=== PATIENT | female | born 1940 | race Asian ===

== ENCOUNTER 2022-10-04 09:40 | Outpatient (CLI) | payer MEDICARE, MEDICAID, SELFPAY ==
[2022-10-04 14:21] LABS: Vitamin D 25 Hydroxy* 33 ng/mL (30-80)
--- NOTE | 2022-10-05 13:06 | ONC.NURNOTE ---
Received referral from clinic for patient for pancytopenia 10/04/2022. Nursing asked to please have CBC rechecked prior to seeing patient, and clinic declined. Talked with pulpit operator, Dr. Quezada and she notes that she doesn't want the CBC rechecked for one month and if continues to be low will look at the information and see patient as able. This message was left for Dr. Gee at the [facility].
== END 2022-10-04 09:41 | disposition home or self-care (01) ==
PROVIDERS: PCP Family Medicine; Visit Provider Family Medicine
DX: E87.6 Hypokalemia (principal); I10 Essential (primary) hypertension; M85.80 Other specified disorders of bone density and structure, unspecified site; D61.818 Other pancytopenia; M81.0 Age-related osteoporosis without current pathological fracture; R10.9 Unspecified abdominal pain
CPT/HCPCS: 82306; 84443; 87086

== ENCOUNTER 2023-12-29 10:33 | Outpatient (CLI) | payer MEDICARE, MEDICAID, SELFPAY | END 2023-12-29 10:34 | disposition home or self-care (01) | LOC: NFLDREF 01-11 11:46 | PROVIDERS: PCP Family Medicine; Referring Provider Family Medicine; Visit Provider Family Medicine | DX: Z13.220 Encounter for screening for lipoid disorders (principal); I10 Essential (primary) hypertension; Z78.0 Asymptomatic menopausal state; E87.6 Hypokalemia; I51.7 Cardiomegaly; K21.9 Gastro-esophageal reflux disease without esophagitis; L30.9 Dermatitis, unspecified; D64.9 Anemia, unspecified | CPT/HCPCS: 80061 ==

== ENCOUNTER 2024-01-31 14:57 | Outpatient (CLI) | payer MEDICARE, SELFPAY ==
--- NOTE | 2024-01-31 15:30 | XR_ITS ---
Patient: MOY ORTIZ Facility:?[facility] Patient ID:?[id number] Site Patient ID:?[id number]. Site :?[id number] Study:?DEXA-Bone Density SPINE/BOTH HIPS-01/31/2024 3:28:11 PM Ordering Physician:OTF Final Report: DXA BONE MINERAL DENSITY STUDY Reason for exam: Asymptomatic menopausal state. Current height (in): 63. Weight (lb): 134. Menopause age: 55. Ethnicity: . 1. Have you had a previous hip or vertebral fracture? No. 2. Have you had any fractures during your adult life which did not result from significant trauma (e.g., auto accident)? No. 3. Did either of your parents have a hip fracture? No. 4. Do you smoke? No. 5. Have you ever taken Glucocorticoids? No. 6. Do you have rheumatoid arthritis? No. 7. Do you have secondary osteoporosis? No. 8. Do you drink 3 or more alcoholic drinks per day? No. 9. Are you being treated for osteoporosis? No. 10. Have you ever taken any of the following medications: Actonel, Evista, Fosamax, Miacalcin, Reclast, Boniva, Forteo, HRT (i.e., estrogen/hormone therapy), Protelos, Prolia, Vitamin D, Calcium, other ? please specify. ANSWER: Yes, fish oil. 11. Do you have any of the following medical conditions: Anorexia or bulimia, asthma or emphysema, end stage renal disease, hyperparathyroidism, any seizure disorders, cancer, inflammatory bowel diseases, hysterectomy, other ? please specify. ANSWER: No. 12. What was your maximum height (inches)? 63 13. Do you perform weight bearing exercise regularly? No. 14. Do you regularly consume dairy products? Yes. 15. Do you drink caffeinated beverages? Yes. If female: 16. At what age did your period start? 13. 17. Are you premenopausal? No. 18. How many full-term pregnancies have you had? 5. 19. Have you ever missed your period for more than 6 months in a row (not including or menopause)? No. TECHNIQUE: Bone mineral density study was performed using the [employer]. FINDINGS: The results of the study expressed as bone mineral density (BMD) are as follows: Lumbar spine L1 to L4: BMD: 0.805 g/cm2. T-score: -2.2. Z-score: 0.6 Neck Left: BMD: 0.547 g/cm2. T-score: -2.7. Z-score: -0.4 Right: BMD: 0.554 g/cm2. T-score: -2.7. Z-score: -0.3 Total Left: BMD: 0.836 g/cm2. T-score: -0.9. Z-score: 1.3 Right: BMD: 0.873 g/cm2. T-score: -0.6. Z-score: 1.5 IMPRESSION: Osteoporosis. *Comparison exams done prior to 03/2020 were performed on different unit, [facility]. COMPARISON: Compared with scan of 05/21/2020, the bone mineral density has increased by 8.0 percent at the spine and increased by 14.7 percent at the hip. Agustin Richards M.D. Diagnostic Radiologist [email or web address] DANIEL/joey D& Transcribed: 12:26 p.mGarry cook/Dictated by: Agustni Richards MD @ 02/01/2024 8:21:00 AM Signed by:?Agustin Richards MD @02/01/2024 12:33:23 PM (Electronic Signature)
== END 2024-01-31 14:58 | disposition home or self-care (01) ==
PROVIDERS: PCP Family Medicine; Visit Provider Family Medicine
DX: Z78.0 Asymptomatic menopausal state (principal); M81.0 Age-related osteoporosis without current pathological fracture
CPT/HCPCS: 77080

== ENCOUNTER 2024-03-29 11:06 | Outpatient (CLI) | payer MEDICARE, MEDICAID, SELFPAY | END 2024-03-29 11:07 | disposition home or self-care (01) | PROVIDERS: PCP Family Medicine; Visit Provider Family Medicine | DX: D64.9 Anemia, unspecified (principal); E87.6 Hypokalemia; I10 Essential (primary) hypertension; M81.0 Age-related osteoporosis without current pathological fracture | CPT/HCPCS: 82310; 83735; 83970; 84100 ==

== ENCOUNTER 2024-06-11 09:36 | Outpatient (RCR) | payer MEDICARE, MEDICAID, SELFPAY ==
--- NOTE | 2024-06-04 14:40 | ONC.NURNOTE ---
Called daughter on 06/03 and scheduled patient for Reclast on Monday 06/11. Also called language interpreter services and requested a Mosotho language interpreter for the appt.
--- NOTE | 2024-06-07 10:53 | URNOTE ---
Prior auth is not required for Reclast ([id number]) per [facility] Injectable prior auth List
[2024-06-11 10:20] LABS: Estimated Glomerular Filt Rate 56 ml/min
[2024-06-11 10:55] VITALS: BP 174/102; PULSE 78; RESP 16; TEMP 36.1; O2SAT 97
[2024-06-11 11:00] VITALS: BP 180/94
[2024-06-11 11:10] VITALS: BP 167/97
[2024-06-11 11:25] VITALS: BP 168/103
[2024-06-11] MEDS: ACETAMINOPHEN 325 MG TABLET 650 MG PO (11:58)
[2024-06-11 12:07] VITALS: BP 182/98; PULSE 78
--- NOTE | 2024-06-11 13:24 | ONC.NURNOTE ---
Pt here for Reclast. Here with clinical business manager and daughter. BP elevated 174/102, recheck 180/94. See EMR VS. Pt c/o headache 03/08-states she gets headaches frequently. Pt did take her BP med this morning. Discussed BP with Hoda Desir APRN, per Hoda rodriguez to treat with reclast, suggested giving pt tylenol 650mg PO for headache. Pt then stated headache was gone. Reclast given, pt tolerated well. Headache returned, BP 182/98. Order then received for tylenol 650mg PO, pt discharged alert and ambulatory with daughter. Mash Processing Operator did leave a message for Dr. Gee to follow up with patient regarding her elevated blood pressures. Pt and her daughter verbalized understanding of plan of care.
== END 2024-12-08 23:59 | disposition home or self-care (01) ==
LOC: CCIC 09:36
PROVIDERS: PCP Family Medicine; Referring Provider Family Medicine; Visit Provider Internal Medicine Hematology & Oncology
DX: M81.0 Age-related osteoporosis without current pathological fracture (principal)
CPT/HCPCS: 36415; 82310; 82565; 96374; 99211; A9270; J3489

== ENCOUNTER 2024-07-25 10:39 | Outpatient (CLI) | payer MEDICARE, MEDICAID, SELFPAY ==
[2024-07-25 10:45] LABS: Lab Add On Test New Spec Needed
== END 2024-07-25 10:40 | disposition home or self-care (01) ==
LOC: LKVREF 10:40
PROVIDERS: PCP Family Medicine; Visit Provider Family Medicine
DX: R53.83 Other fatigue (principal); Z13.29 Encounter for screening for other suspected endocrine disorder
CPT/HCPCS: 84443

== ENCOUNTER 2024-07-26 09:47 | Outpatient (CLI) | payer MEDICARE, MEDICAID, SELFPAY | END 2024-07-26 09:48 | disposition home or self-care (01) | LOC: NFLDREF 07-31 07:14 | PROVIDERS: PCP Family Medicine; Referring Provider Family Medicine; Visit Provider Family Medicine | DX: D64.9 Anemia, unspecified (principal); M81.0 Age-related osteoporosis without current pathological fracture | CPT/HCPCS: 82306; 82728 ==

== ENCOUNTER 2025-04-22 13:45 | Outpatient (RCR) | payer OTHER, SELFPAY ==
--- NOTE | 2025-04-22 16:03 | PT.OPE ---
PT [place] Out[facility] Eval PT [facility] Outpatient Eval Start: 04/22/25 13:13 Freq: Status: Active Protocol: Document 04/22/25 16:00 ENM (Rec: 04/22/25 16:00 ENM [id number]) E-signed By Michelle Mayo DPT Physical Therapy Outpatient Evaluation Insurance Information Recert Due Date 07/21/25 Insurance Name Medicare B Medical Diagnosis pain in right knee pain in unspecified joint achilles tendonitis, unspecified leg unsteadiness on feet Treating Diagnosis right ankle and foot pain, impaired gait, decreased ankle ROM, decreased functional strength, decreased independence with mobility Imaging Report Xray Information Mild patellofemoral spurring. No large joint effusion. Chronic distal quadriceps tendinosis. Mild medial compartment narrowing and spurring. No fracture. Impression: Mild degenerative joint disease. Referring MD Gee Subjective Subjective Patient presents to PT for complaint of right foot pain that is limiting their walking ability. This started about 3 months ago out of nowhere. Her daughter brings her to appointment to provide medical history and translation. She lives with her daughter. She can walk a short distance then has to rest. Is becoming more slow and painful. She is afraid of falling. Now can't walk with her daughter at the store which they used to do together. In the house she is able to furniture walk . Is now needing more help to get out of bed. Feels that it is harder to walk when they get up in the morning. Daughter wants her to exercise. Daughter is also wanting guidance as to a w/c vs different kinds of walker to keep her moving. When it started: months ago Describes it as: varying pain Timing: worse with being on their feet Location: along distal achilles tendon PMHx: osteoporosis, anemia, HTN, cardiomegaly Pain Comments unable to rate. States that sometimes pain isn't too bad other times it is worse Current Work Status Retired Precautions Treatment Nah- reeth Precautions/ daughter is nah- ree Contraindications Objective Other/Pertinent ROM: Objective Ankle DF L 2 degs R -2 + for pain Ankle PF L 70 R 60 strength: decreased lower extremity strength as seen with STS transfers requiring SBA-CGA to perform decreased functional core strength seen with seated balance requiring B UE to perform palpation/joint mobility: tender to palpation along distal Achilles tendon into insertion gait/balance: Patient ambulates with mild instability requiring 1 UE support from daughter to perform. Patient displays increased horizontal sway, small step length, slow pace , decreased foot clearance with patient seeking out furniture and support of daughter Other: Patient performs supine<>sit via longsitting and Tonja from daughter at trunk and legs Assessment Assessment/ Patient is an 84 year old female presenting with 3+ Impression months history of right ankle/foot pain that is limiting their mobility. Symptoms started without an injury. Since pain has started she has required more assistance from her daughter for functional mobility. Daughter can no longer bring her with to the store or take her out to walk in the neighborhood which has her worried. They would like to be fit for a walker that would help Lb stay mobile. Upon assessment patients concordant pains brought on with palpation of distal Achilles tendon and with active ankle DF. They require assistance from daughter or wall to ambulate 30' back to exam room. Seated balance is limited by poor core strength requiring assistance from daughter to complete supine<>sit transfers. Patient displays improved gait mechanics and stability with use of 4WW in session. Daughter would like to move forward with a wheeled walker, therapist will reach out to MD for an order. At this time patient does not feel that they would like to come to clinic for future appointments. Family plans to have her exercise at home. They will reach out to therapist with any questions/concerns or to schedule future appointments when able. Lb would greatly benefit from skilled PT to address impairments stated above for improved functional strength and independence to decrease caregiver burden. Primary Functional transfers, walking Limitations Plan of Care Rehabilitation Good Potential Physical Therapy In 4-6 visits: Goals 1. Patient will be IND with HEP and self management of symptoms 2. Patient will display independence with 4WW management in order to safely navigate their home environment 3. Patient will be able to walk around her neighborhood with family and use of 4WW without increase in foot pain to progress toward PLOF Coordination/ Referral Source Communication With Treatment Plan/ Gait Training,Ice/Cold/Vasopneumatic,Joint Mobilization Direct Interventions ,Manual Therapy,Neuromuscular Re-ed,Orthotics/Braces, Self-Care/Home Management,Therapeutic Activities, Therapeutic Exercises Frequency/Duration 1x a week for 4-6 visits Patient Will Be Completion of LTG(s),Independent w/HEP Discharged From Therapy Evaluation Billing Untimed Code 16 Treatment Minutes Complexity Low Certification Information Initial 04/22/25 Certification Date Ending Certification 07/21/25 Date Provider Signature Yes Required Provider Signature POC & Medical Necessity Shows Agreement With Physician NPI Number Write NPI# Here Physician Comment/ : Change Physician Signature Please Sign/Date Here & Date Requested
== END 2025-07-28 09:48 | disposition home or self-care (01) ==
PROVIDERS: PCP Family Medicine; Visit Provider Family Medicine
DX: M25.561 Pain in right knee (principal); R26.81 Unsteadiness on feet; M76.60 Achilles tendinitis, unspecified leg; Z51.89 Encounter for other specified aftercare
CPT/HCPCS: 97161; 97530

== ENCOUNTER 2025-09-02 09:28 | Emergency (ER) | payer OTHER, SELFPAY ==
--- OUTSIDE RECORDS SUMMARY | 2025-08-30 08:30 | XMS_ITS | Encounter Summary ---
Author Organization [facility] er Address [address] [place] [id number] Care Team Providers Care Punch Operator Name Role Phone None, Pcp Primary Care Provider Unavailabl e Reason for Visit * Reason Comments Epistaxis (Nose Bleed) Encounter Details Date Type Department Care Team (Late st Contact Info) Description 08/30/2025 9:30 AM CDT - 08/30/2025 12:26 PM CDT Emergency [facility] Emergency Room [address] [place] [id number] [place] [address] [place] [phone] Epistaxis (Primary Dx) Discharge Disposition: Home or Self Care Social History Tobacco Use Types Packs/Day Years Used Date Smoking Tobacco: Never Smokeless Tobacco: Never Tobacco Cessation:Counseling Given: Not Answered Alcohol Use Standard Drinks/Week Comments Never 0 (1 standard drink = 0.6 oz pur e alcohol) Comments No Sex and Gender Information Value Date Recorded Sex Assigned at Not on file Legal Sex Female 9:17 AM CDT Gender Identity Not on file Sexual Orientation Not on file documented as of this encounter Last Filed Vital Signs Vital Sign Reading Time Taken Comments Blood Pressure 105/68 08/30/2025 9:30 AM CDT Pulse 100 08/30/2025 9:30 AM CDT Temperature 36.4 C (97.5 F) 08/30/2025 9:30 AM CDT Respiratory Rate 16 08/30/2025 9:30 AM CDT Oxygen Saturation 98% 08/30/2025 9:30 AM CDT Inhaled Oxygen Concentration - - Weight - - Height - - Body Mass Index - - documented in this encounter Discharge Instructions * Discharge Instructions* Jerrica Graf MD - 08/30/2025 12:14 PM CDT Your evaluated in the emergency room for nosebleed. The nosebleed was stopped by using Merisel sponges. Please follow-up in your primary care physician's office after 3 days for removal of the sponges. If you continue to have significant bleeding, please return to emergency room. * Attachments The following attachments cannot be sent through Care Everywhere. * Nosebleed Adult Qphz-zj-Ahzc (Swazi) documented in this encounter Medications at Time of Discharge losartan-hydroCHL OROthiazide (HYZAAR) 100-25 MG per tablet Take 1 tablet by mouth 06/11/2025 documented as of this encounter ED Notes * Meme Chakraborty RN - 08/30/2025 9:30 AM CDT Pt presents to the ed with a nose bleed from both nostril that started this morning around 0600. Bleeding is currently controlled. * Jerrica Graf MD - 08/30/2025 9:17 AM CDTAssociated Order(s): Epistaxis Management HPI Chief Complaint Patient presents with Epistaxis (Nose Bleed) 84-year-old female with history of hypertension, the patient not on any anticoagulants or antiplatelet agents. Presents to the emergency room with history of nosebleed. She said that she woke up thismorning and started having nosebleed mostly from the left nostril. By the time she came to the emergency room she stopped bleeding. She said that she feels weak because of the bleeding. No history ofany nausea or vomiting. The patient has minimal to no symptoms at this point. Does not have any history of shortness of breath. No history of any other bleeding. Patient History Patient History Allergies[1] Medical History[2] Surgical History[3] Family History[4] Social History Tobacco Use Smoking status: Never Smokeless tobacco: Never Vaping Use Vaping status: Never Used Substance Use Topics Alcohol use: Never Drug use: Never Review of Systems Review of Systems Constitutional: Negative for chills and fever. HENT: Positive for nosebleeds. Eyes: Negative for pain. Respiratory: Negative for cough. Genitourinary: Negative for dysuria and hematuria. Skin: Negative for rash. Neurological: Negative for syncope and numbness. All other systems reviewed and are negative. Physical Exam ED Triage Vitals [08/30/25 0930] Temp Heart Rate Resp BP 36.4 ??C (97.5 ??F) 100 16 105/68 SpO2 Temp Source Heart Rate Source Patient Position 98 % Temporal Monitor Sitting BP Location FiO2 (%) Weight Left arm -- -- There is no height or weight on file to calculate BMI. Physical Exam Constitutional: Appearance: She is well-developed. HENT: Head: Comments: Patient does have a small spot on the nasal septum which appears to be on the left side. This appears to be in the kiesselbach's plexus. Cardiovascular: Rate and Rhythm: Normal rate and regular rhythm. Heart sounds: No murmur heard. Pulmonary: Effort: Pulmonary effort is normal. Abdominal: General: Bowel sounds are normal. Palpations: Abdomen is soft. Jeovanny Coma Scale Score: 15 Epistaxis Management Performed by: Jerrica Graf MD Authorized by: Jerrica Graf MD Consent: Consent obtained: Verbal Consent given by: Patient Risks, benefits, and alternatives were discussed: yes Risks discussed: Bleeding Alternatives discussed: No treatment Pratt protocol: Procedure explained and questions answered to patient or proxy's satisfaction: yes Relevant documents present and verified: yes Patient identity confirmed: Verbally with patient Anesthesia: Anesthesia method: None Procedure details: Treatment site: R anterior Treatment method: Anterior pack and merocel sponge Treatment complexity: Extensive Treatment episode: recurring Post-procedure details: Assessment: Bleeding decreased Procedure completion: Tolerated Labs Reviewed - No data to display ED Course & MDM Medical Decision Making 84-year-old female with history of hypertension, the patient not on any anticoagulants or antiplatelet agents. Presents to the emergency room with history of nosebleed. She said that she woke up thismorning and started having nosebleed mostly from the left nostril. By the time she came to the emergency room she stopped bleeding. She said that she feels weak because of the bleeding. No history ofany nausea or vomiting. The patient has minimal to no symptoms at this point. Does not have any history of shortness of breath. No history of any other bleeding. Amount and/or Complexity of Data Reviewed External Data Reviewed: notes. Discussion of management or test interpretation with external provider(s): The patient was evaluated in the emergency room for epistaxis. Initially patient did not have any bleeding. Later she started having bleeding from both nostrils. Please see the epistaxis management for care in the emergency room. The patient did get 2 Merocel packs with which her bleeding did stop. She was watched in the emergency room for 3 hours during which there is no recurrence of bleeding. Patient was discharged home in stable condition with recommendation to follow-up in clinic. If she has any worsening symptoms, she will return to emergency room. Risk Prescription drug management. Follow Up No follow-up provider specified. Discharge Medication List as of 08/30/2025 12:15 PM CONTINUE these medications which have NOT CHANGED Details losartan-hydroCHLOROthiazide (HYZAAR) 100-25 MG per tablet Take 1 tablet by mouth, Starting 06/11/2025, Historical Med Discharge Instructions Attached Instructions NOSEBLEED ADULT UALU-DC-DWVM (CYPRIOT) [[id number]] Discharge Instructions Your evaluated in the emergency room for nosebleed. The nosebleed was stopped by using Merisel sponges. Please follow-up in your primary care physician's office after 3 days for removal of the sponges. If you continue to have significant bleeding, please return to emergency room. ED COURSE and CLINICAL IMPRESSION ED Course as of 08/31/25 1450 Sat Aug 30, 2025 1049 In the emergency room the patient started having more bleeding. He had and both the nostrils were packed with Merocel packs. [GK] ED Course User Index [GK] Jerrica Graf MD Clinical Impressions as of 08/31/25 1450 Epistaxis Disposition: Discharge [1] No Known Allergies [2] History reviewed. No pertinent past medical history. [3] History reviewed. No pertinent surgical history. [4] No family history on file. Jerrica Graf MD 08/31/25 8720 OPERATOR documented in this encounter Plan of Treatment Not on file documented as of this encounter Procedures Procedure Name Priority Date/Time Associated Diagnosis Comments HC ED CONTROL NASAL HEMORRHAGE ANTERIOR COMPLEX Routine 08/30/2025 9:17 AM CDT MI CTRL NOSEBLEED,ANTER,COMP PATIENCE Routine 08/30/2025 9:17 AM CDT documented in this encounter Results * MI CTRL NOSEBLEED,ANTER,COMPLEX, HC ED CONTROL NASAL HEMORRHAGE ANTERIOR COMPLEX (08/30/2025 9:17 AM CDT) Narrative Jerrica Graf MD - 08/30/2025 9:17 AM CDT Jerrica Graf MD 08/31/2025 2:50 PM Epistaxis Management Performed by: Jerrica rGaf MD Authorized by: Jerrica Graf MD Consent: Consent obtained: Verbal Consent given by: Patient Risks, benefits, and alternatives were discussed: yes Risks discussed: Bleeding Alternatives discussed: No treatment Pratt protocol: Procedure explained and questions answered to patient or proxy's satisfaction: yes Relevant documents present and verified: yes Patient identity confirmed: Verbally with patient Anesthesia: Anesthesia method: None Procedure details: Treatment site: R anterior Treatment method: Anterior pack and merocel sponge Treatment complexity: Extensive Treatment episode: recurring Post-procedure details: Assessment: Bleeding decreased Procedure completion: Tolerated Jerrica Garf MD IN CLINIC/BEDSIDE ORDER SHANICE Final Result documented in this encounter Visit Diagnoses Diagnosis Epistaxis- Primary documented in this encounter Administered Medications Inactive Administered Medications - up to 3 most recent administrations Medication Order MAR Action Action Date Dose Rate Site lidocaine (XYLOCAINE) 2 % gel 1 Application 1 Application, Topical, Once, On 08/30/25 at 1010, For 1 dose Given 08/30/2025 10:25 AM CDT 1 Application silver nitrate applicator Topical, Once, On 08/30/25 at 1010, For 1 dose Given 08/30/2025 10:24 AM CDT 1 application documented in this encounter Active and Recently Administered Medications Times are shown in CDT. Scheduled Medication Order 08/28/2025 08/29/2025 08/30/2025 lidocaine (XYLOCAINE) 2 % gel 1 Application (COMPLETED) 1 Application, Topical, Once, On 08/30/25 at 1010, For 1 dose 1025 (Given - Provid er: Jerrica Graf MD) silver nitrate applicator (COMPLETED) Topical, Once, On 08/30/25 at 1010, For 1 dose 1024 (Given - Provid er: Jerrica Graf MD) documented in this encounter Care Teams Punch Operator Relationship Specialty Start Date End Date None, Pcp [address] [place] [phone] PCP - General Horticultural Specialty Grower Field 08/30/25 documented as of this encounter
--- OUTSIDE RECORDS SUMMARY | 2025-09-02 09:34 | XMS_ITS | Clinical Summary ---
Author Organization [facility] er Address [address] [place] [address] Care Team Providers Care Director Marketing Analytics Name Role Phone None, Pcp Primary Care Provider Unavailabl e Allergies No known active allergies Medications losartan-hydroCH LOROthiazide (HYZAAR) 100-25 MG per tablet Take 1 tablet by mouth 06/11/2025 Active Encounters Date Type Department Care Team Description 08/30/2025 9:30 AM CDT - 08/30/2025 12:26 PM CDT Emergency [facility] Emergency Room [address] [place] [id number] Jerrica Graf MD Epistaxis (Primary Dx) Discharge Disposition: Home or Self Care 08/30/2025 Travel from Last 3 Months Social History Tobacco Use Types Packs/Day Years [...] on file Sexual Orientation Not on file Last Filed Vital Signs Vital Sign Reading Time Taken Comments Blood Pressure 105/68 08/30/2025 9:30 AM CDT Pulse 100 08/30/2025 9:30 AM CDT Temperature 36.4 C (97.5 F) 08/30/2025 9:30 AM CDT Respiratory Rate 16 08/30/2025 9:30 AM CDT Oxygen Saturation 98% 08/30/2025 9:30 AM CDT Inhaled Oxygen Concentration - - Weight - - Height - - Body Mass Index - - Plan of Treatment Health Maintenance Due Date Last Done Comments Bone Density Scan 1940 Mammogram 1940 Medicare Annual Wellness Vis it (AWV) 1958 DTaP,Tdap,and Td Vaccines (1 - Tdap) 1959 Pneumococcal Vaccine: 50+ Ye ars (1 of 1 - PCV) 1990 Zoster Vaccines (1 of 2) 1990 COVID-19 Vaccine (1 - 2023-2 5 season) 2025 Influenza Vaccine (#1) 2025 Fall Risk Performed 08/30/2026 08/30/2025 HPV Vaccines Aged Out No longer eligi ble based on patient's age to complete this topic Procedures Procedure Name Priority Date/Time Associated Diagnosis Comments HC ED CONTROL NASAL HEMORRHAGE ANTERIOR COMPLEX Routine 08/30/2025 9:17 AM CDT MD CTRL NOSEBLEED,ANTER,COMP PATIENCE Routine 08/30/2025 9:17 AM CDT from Last 3 Months Results * MD CTRL NOSEBLEED,ANTER,COMPLEX, HC ED CONTROL NASAL HEMORRHAGE ANTERIOR COMPLEX (08/30/2025 9:17 AM CDT) Narrative Jerrica Graf MD - 08/30/2025 9:17 AM CDT Jerrica Graf MD 08/31/2025 2:50 PM Epistaxis Management Performed by: Jerrica Graf MD Authorized by: Jerrica Graf MD Consent: Consent obtained: Verbal Consent given by: Patient Risks, benefits, and alternatives were discussed: yes Risks discussed: Bleeding Alternatives discussed: No treatment Kenna protocol: Procedure explained and questions answered to patient or proxy's satisfaction: yes Relevant documents present and verified: yes Patient identity confirmed: Verbally with patient Anesthesia: Anesthesia method: None Procedure details: Treatment site: R anterior Treatment method: Anterior pack and merocel sponge Treatment complexity: Extensive Treatment episode: recurring Post-procedure details: Assessment: Bleeding decreased Procedure completion: Tolerated us Jerrica Graf MD IN CLINIC/BEDSIDE ORDER SHANICE Final Result from Last 3 Months Insurance [facility] [place] [place] Care Teams Director Marketing Analytics Relationship Specialty Start Date End Date None, Pcp [address] [facility] [place] [phone] PCP - General Cast Iron Dipper 08/30/25
--- OUTSIDE RECORDS SUMMARY | 2025-09-02 09:34 | XMS_ITS | Encounter Summary ---
Author Organization [facility] er Address [address] [place] [address] Care Team Providers Care Lifestyle Consultant Name Role Phone None, Pcp Primary Care Provider Unavailabl e Encounter Details Date Type Department Care Team (Latest Contact Info) Description 08/30/2025 Travel Social History Tobacco Use Types Packs/Day Years Used Date Smoking Tobacco: Never Smokeless Tobacco: Never Alcohol Use Standard Drinks/Week Comments Never 0 (1 standard drink = 0.6 oz pur e alcohol) Comments No Sex and Gender Information Value Date Recorded Sex Assigned at Not on file Legal Sex Female 9:17 AM CDT Gender Identity Not on file Sexual Orientation Not on file documented as of this encounter Plan of Treatment Not on file documented as of this encounter Visit Diagnoses Not on filedocumented in this encounter Care Teams Lifestyle Consultant Relationship Specialty Start Date End Date None, Pcp [address] [facility] [address] 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
[2025-09-02 10:02] VITALS: BP 134/80; PULSE 105; RESP 18; TEMP 37.2; O2SAT 96; BMI 24.3
--- NOTE | 2025-09-02 10:20 | ED.GENADULT ---
HPI - General Adult General Chief complaint: Ear/Nose/Throat Problem Stated complaint: Needs nose tubes removed Time Seen by Provider: 09/02/25 10:07 History of Present Illness HPI narrative: Patient bent over while getting into car and had nose bleed that would not stop on Monday. Went to a [facility] and had merocel sponges placed with instructions to have removed in three days at primary care . Daughter attempted to make this appointment but was told their doctor was not in. Sponges were to be removed yesterday so they are here for removal. 84-year-old woman presenting to the emergency department for removal of nasal packing following a nose bleed. Attempted to make appointment with primary as a been in for 3 days to have them removed but primary was not available. No further bleeding. No fever. Is not taking prophylactic antibiotics. Does have hypertension. Related Data Previous Rx's ?Medication ?Instructions ?Recorded calcium 250 mg (as 2 tab PO BID #360 tabs 05/10/24 citrate)-vitamin D3 5 mcg (200 unit) tablet (Citracal Regular) acetaminophen 500 mg tablet 500 mg PO Q6H PRN pain #90 tabs 06/27/24 cholecalciferol (vitamin D3) 50 50 mcg PO QDAY #90 caps 07/29/24 mcg (2,000 unit) capsule famotidine 40 mg tablet 40 mg PO QDAY PRN acid reflux #90 04/15/25 tabs ibandronate 150 mg tablet 150 mg PO MONTHLY #3 tabs 04/15/25 potassium chloride 20 mEq 40 meq (2 x 20 mEq) PO QDAY #180 04/15/25 tablet,extended release tabs losartan 100 1 tab PO DAILY #90 tabs 07/14/25 mg-hydrochlorothiazide 25 mg tablet triamcinolone acetonide 0.1 % 1 applic topical BID #80 grams 07/14/25 topical cream Allergies Allergy/AdvReac Type Severity Reaction Status Date / Time No Known Allergies Allergy Unknown Verified 04/15/25 10:12 Review of Systems Status of ROS: Reports: 6 or more systems reviewed and unremarkable except as noted in History and below [facility] Medical History Unstable gait ?R26.81 - Unsteadiness on feet (ICD-10) Arthritis ?M19.90 - Unspecified osteoarthritis, unspecified site (ICD-10) Anxiety with depression ?F41.8 - Other specified anxiety disorders (ICD-10) Osteoporosis ?M81.0 - Age-related osteoporosis without current pathological fracture (ICD-10) History of chronic gastritis ?Z87.19 - Personal history of other diseases of the digestive system (ICD-10) Encounter for Medicare annual wellness exam ?Z00.00 - Encounter for general adult medical examination without abnormal findings (ICD-10) Cholelithiasis ?K80.20 - Calculus of gallbladder without cholecystitis without obstruction (ICD-10) Surgical History History of left cataract surgery ?Z98.42 - Cataract extraction status, left eye (ICD-10) Status post cholecystectomy (2014) ?Z90.49 - Acquired absence of other specified parts of digestive tract (ICD-10) History of cataract extraction ?Z98.49 - Cataract extraction status, unspecified eye (ICD-10) Social History In the past 12 months, utilities in danger of being shut off: no Smoking Status: Never smoker Non-prescribed substance use: denies use Exam Narrative: Exam Narrative: Pleasant. NAD. Has lightly blood-stained nasal tampons in place. There is a moderate amount of moisture distally on the packing. Oropharynx is without evidence of bleeding. Const: Vital Signs, click to edit/add: Vital Signs - 24 hr 09/02/25 10:02 Temperature 98.9 F Pulse Rate [Pulse Oximeter] 105 H Respiratory Rate 18 Blood Pressure [Ri ght Upper Arm] 134/80 Pulse Oximetry 96 Oxygen Delivery Me thod Room Air Documenting provider has reviewed patient's vital signs: yes Course Vital Signs Vital signs: Initial Vital Signs Temperature 98.9 F 09/02/25 10:02 Temperature Source Temporal Artery Scan 09/02/25 10:02 Pulse Rate 105 H 09/02/25 10:02 Respiratory Rate 18 09/02/25 10:02 Blood Pressure 134/80 09/02/25 10:02 Blood Pressure Mean 98 09/02/25 10:02 Pulse Oximetry 96 09/02/25 10:02 Oxygen Delivery Method Room Air 09/02/25 10:02 Vital Signs Temperature 98.9 F 09/02/25 10:02 Pulse Rate 105 H 09/02/25 10:02 Respiratory Rate 18 09/02/25 10:02 Blood Pressure 134/80 09/02/25 10:02 Pulse Oximetry 96 09/02/25 10:02 Oxygen Delivery Method Room Air 09/02/25 10:02 Temperature 98.9 F 09/02/25 10:02 Pulse Rate 99 09/02/25 11:44 Respiratory Rate 16 09/02/25 11:44 Blood Pressure 169/98 H 09/02/25 11:44 Pulse Oximetry 99 09/02/25 11:44 Oxygen Delivery Method Room Air 09/02/25 11:44 Medical Decision Making MDM Narrative Medical decision making narrative: It would appear to be time to remove packing. Releasing tape on strings and lightly traction on Merocel they were removed without difficulty. There were to placed [id number] in the right nostril. There is some light oozing of blood laterally in the right nostril. Does appear to have polyps with deeper examination of the nasopharynx. Nareth appeared quite relieved to have packing out. Propose that we wait to monitor for further bleeding. They were willing to do this. The spots of blood that were noted laterally in the right nostril did not progress further. Daughter had asked about doing cautery; they had apparently expected some cautery. This has clotted appropriately. I thought Merocel packing was moist enough to remove but perhaps should have been moistened further. Regardless it looks to have clotted well at this time. I would not disturb it further at this time. After period of monitoring emergency department or further bleeding. No bleeding in the posterior oropharynx. Blood pressure was up a little bit on last check. Cautioned regarding maintaining control. Apparently is usually in good control. See patient discharge plan for further discussion It looks as though your bleeding has been controlled. The blood you saw when you looked in your mother's nose has now formed a clot. I do not want to burn it because I think that it might make it worse. Stay well-hydrated. Consider sleeping under the mist of a cool mist humidifier. In 2 days you might start applying a light layer of white petroleum jelly that I gave you a couple of times daily but at least overnight. Be sure your blood pressure is well controlled. If begins to bleed again, pack your nose maybe both sides, with dampened cotton balls and then apply a nose clamp or hold tight with your fingers and wait for 30 minutes. If the bleeding though is too heavy and you are just not getting control, please be seen. Medical Records Medical records reviewed: Yes I reviewed the patient's medical records Discharge Plan Discharge Clinical Impression: Anterior epistaxis Patient Disposition: Home w/ Parent or Adult Condition: Improved Additional Instructions: It looks as though your bleeding has been controlled. The blood you saw when you looked in your mother's nose has now formed a clot. I do not want to burn it because I think that it might make it worse. Stay well-hydrated. Consider sleeping under the mist of a cool mist humidifier. In 2 days you might start applying a light layer of white petroleum jelly that I gave you a couple of times daily but at least overnight. Be sure your blood pressure is well controlled. If begins to bleed again, pack your nose maybe both sides, with dampened cotton balls and then apply a nose clamp or hold tight with your fingers and wait for 30 minutes. If the bleeding though is too heavy and you are just not getting control, please be seen. Prescriptions: No Action calcium citrate-vitamin D3 [Citracal Regular] 250 mg-5 mcg (200 unit) tablet 2 tab PO BID Qty: 360 3RF acetaminophen 500 mg tablet 500 mg PO Q6H PRN (Reason: pain) Qty: 90 3RF triamcinolone acetonide 0.1 % cream 1 applic topical BID Qty: 80 1RF losartan-hydrochlorothiazide 100-25 mg tablet 1 tab PO DAILY Qty: 90 3RF potassium chloride 20 mEq tablet extended release 40 meq PO QDAY Qty: 180 3RF famotidine 40 mg tablet 40 mg PO QDAY PRN (Reason: acid reflux) Qty: 90 1RF ibandronate 150 mg tablet 150 mg PO MONTHLY Qty: 3 4RF cholecalciferol (vitamin D3) 50 mcg (2,000 unit) capsule 50 mcg PO QDAY Qty: 90 3RF Follow Up/Referrals: Kahlil Gee MD [Primary Care Provider, Family Practice] Stand Alone Forms: [id number] Info Instructions
[2025-09-02 11:44] VITALS: BP 169/98; PULSE 99; RESP 16; O2SAT 99
== END 2025-09-02 11:45 | disposition home or self-care (01) ==
PROVIDERS: Emergency Provider Family Medicine; PCP Family Medicine
DX: R04.0 Epistaxis (principal)
CPT/HCPCS: 99281; 99283